=== PATIENT | female | born 1965 | race Caucasian/White ===

== ENCOUNTER 2017-10-26 14:27 | Emergency (ER) | payer OTHER ==
[~2017-10-26] VITALS: Ht 172.7 cm; Wt 88.5 kg
[2017-10-26] MEDS ORDERED: NAPR550 PO (15:58)
[2017-10-26] MEDS ORDERED: Norco 5-325 Ta1 EACH PO (15:58)
== END 2017-10-26 16:09 | disposition home or self-care (01) ==
LOC: ER 14:27
DX: S52.121A Displaced fracture of head of right radius, initial encounter for closed fracture (principal); S82.821 Torus fracture of lower end of right fibula; W19.XXXA Unspecified fall, initial encounter
CPT/HCPCS: 73030; 73070; 73110; 73502; 73610; 99284